=== PATIENT | male | born 1980 | race Caucasian/White ===

== ENCOUNTER → 2021-08-07 | Outpatient (CLI) | payer OTHER | LOC: M LABSMTC 09:47 | PROVIDERS: ATTEND Anesthesiology | DX: Z01.812 Encounter for preprocedural laboratory examination (principal); Z20.822 Contact with and (suspected) exposure to COVID-19 ==

== ENCOUNTER 2021-08-12 10:19 | Day surgery (SDC) | payer OTHER ==
[~2021-08-12] VITALS: Ht 172.7 cm; Wt 93.8 kg
[~2021-08-12 10:19] MED LIST: LIDOCAINE 1% MDV 20ML VIAL SQ PRN; LR 1,000 ML IV ONE
[2021-08-12] MEDS ORDERED: fentaNYL 100 MCG/2 ML INJECTION (J3010) As Ordered ONE ×3 (11:05→13:02)
[2021-08-12] MEDS ORDERED: MIDAZOLAM INJ 2MG/2ML VIAL (J2250 PER 1MG) As Ordered ONE (11:05)
[2021-08-12] MEDS ORDERED: LIDOCAINE 2% 100MG/5ML SDV (FOR ANES.) As Ordered ONE (11:06)
[2021-08-12] MEDS ORDERED: ROCURONIUM BROMIDE 50 MG/5 ML VIAL As Ordered ONE (11:06)
[2021-08-12] MEDS ORDERED: dexameTHASONE 4 MG/ML 1ML VIAL (J1100 PER 1MG) As Ordered ONE (11:06)
[2021-08-12] MEDS ORDERED: ONDANSETRON 4MG/2ML VIAL As Ordered ONE ×2 (11:06→13:03)
[2021-08-12] MEDS ORDERED: propofoL 200 MG/20 ML VIAL As Ordered ONE (11:06)
[2021-08-12] MEDS ORDERED: LIDOCAINE W/EPINEPHRINE 1% 20ML VIAL As Ordered ONE (11:49)
[2021-08-12] MEDS ORDERED: BUPIVACAINE/EPIN 0.5% 30 ML VIAL As Ordered ONE (11:50)
[2021-08-12] MEDS ORDERED: ACETAMINOPHEN 1000MG 100ML IV BTL (OFIRMEV) (J0131 PER 10MG) As Ordered ONE (12:21)
[2021-08-12] MEDS ORDERED: SUGAMMADEX SODIUM 500 MG/5 ML VIAL (BRIDION) As Ordered ONE (12:22)
[2021-08-12] MEDS ORDERED: oxyCODONE 5MG TAB PO PRN (13:15)
[2021-08-12] MEDS ORDERED: fentaNYL 100 MCG/2 ML INJECTION (J3010) IV PRN (13:15)
[2021-08-12] MEDS ORDERED: METOCLOPRAMIDE INJ 10MG/2ML VIAL (J2765 PER 1) IV PRN (13:15)
[2021-08-12] MEDS ORDERED: ONDANSETRON 4MG/2ML VIAL IV PRN (13:15)
[2021-08-12] MEDS ORDERED: LR 1,000 ML IV SCH ×2 (13:15)
[2021-08-12 14:40] VITALS: BP 142/80
--- NOTE | 2021-08-13 15:19 | RO ---
OPERATIVE NOTE DATE OF OPERATION: 08/12/2021 PREOPERATIVE DIAGNOSIS: Lesion of right tonsil. POSTOPERATIVE DIAGNOSIS: Lesion of right tonsil. PROCEDURE: Right tonsillectomy. SURGEON: LIZBETH KHAN MD DESCRIPTION OF PROCEDURE: Under general anesthesia, the patient was intubated and Taylor-Ronnie mouth gag was inserted. The tonsil area was infiltrated with lidocaine, epinephrine and Marcaine. Using the cautery, I dissected the tonsil free from its bed on that side. Vessels seen were cauterized with cautery. The patient tolerated the procedure well. No blood loss. DISPOSITION: The patient was extubated and transferred to the recovery room in excellent condition.
== END 2021-08-12 14:50 | disposition home or self-care (01) ==
LOC: M SDC 10:19
PROVIDERS: ATTEND Otolaryngology
DX: J35.8 Other chronic diseases of tonsils and adenoids (principal); Z87.891 Personal history of nicotine dependence; Z91.030 Bee allergy status; Z88.0 Allergy status to penicillin
CPT/HCPCS: 42826; 88302; J0131; J1100; J2250; J2405; J3010